=== PATIENT | female | born 2000 | race Hispanic/Latino ===

== ENCOUNTER 2023-04-22 20:39 | Emergency (ER) | payer OTHER ==
[~2023-04-22] VITALS: Ht 160 cm; Wt 99.8 kg
[2023-04-22] MEDS ORDERED: CEFTRIAXONE 1 GM VIAL IV STA (21:10)
[2023-04-22] MEDS ORDERED: SODIUM CHLORIDE 0.9% 1000ML 1,000 ML IV ONE (21:15)
[2023-04-22 21:24] LABS: BASOPHILS # (AUTO) 0.1 (0.0-0.1); BASOPHILS % 0.6 % (0.0-1.0); EOSINOPHILS # (AUTO) 0.1 (0.0-0.4); EOSINOPHILS % 0.9 % (0.0-6.0); HEMATOCRIT 40.6 % (34.2-44.1); HEMOGLOBIN 13.7 g/dL (12.0-16.0); LYMPHOCYTES # (AUTO) 1.9 (1.0-3.2); LYMPHOCYTES % 12.1 % (18.0-39.1); MEAN CORPUSCULAR HEMOGLOBIN 29.7 pg (28-32); MEAN CORPUSCULAR HGB CONC 33.7 g/dL (31-35); MEAN CORPUSCULAR VOLUME 87.9 fL (81-99); MONOCYTES # (AUTO) 1.3 (0.2-0.8); NEUTROPHILS # (AUTO) 12.4 (2.1-6.9); NEUTROPHILS % 78.1 % (38.7-80.0); PLATELET COUNT 398 x10e3/uL (140-360); RED BLOOD COUNT 4.62 x10e6/uL (3.6-5.1); RED CELL DISTRIBUTION WIDTH 13.3 % (11.7-14.4)
[2023-04-22] MEDS ORDERED: SODIUM CHLORIDE 0.9% 100 ML IV ONE (21:30)
[2023-04-22 21:32] LABS: COLOR,URINE YELLOW (YELLOW); KETONES,URINE NEGATIVE (NEGATIVE); LEUKOCYTE ESTERASE ,URINE TRACE (NEGATIVE); NITRITE,URINE NEGATIVE (NEGATIVE); PROTEIN,URINE DIPSTICK NEGATIVE (NEGATIVE); URINE UROBILINOGEN 0.2 mg/dL (0.2 - 1)
[2023-04-22 21:33] LABS: CLARITY,URINE CLEAR (CLEAR)
[2023-04-22 21:34] LABS: INR 0.92; PROTHROMBIN TIME 12.9 seconds (11.9-14.5)
[2023-04-22 21:35] LABS: PARTIAL THROMBOPLASTIN TIME 29.2 seconds (23.8-35.5)
[2023-04-22 21:42] LABS: ALBUMIN 4.2 g/dL (3.5-5.0); ANION GAP 15.6 mmol/L (8-16); CREATININE, SERUM 0.87 mg/dL (0.57-1.11); POTASSIUM 3.6 mmol/L (3.5-5.1)
[2023-04-22 21:44] LABS: BACTERIA,URINE RARE /HPF; EPITHELIAL CELLS,URINE FEW /LPF; WBC,URINE (MAN) 0-5 /HPF (0-5)
[2023-04-22 21:53] LABS: CALCIUM 9.6 mg/dL (8.4-10.2)
[2023-04-22] MEDS ORDERED: ACETAMINOPHEN 325 MG TAB PO ONE (22:00)
[2023-04-22] MEDS ORDERED: IBUPROFEN 600 MG TAB PO STA (23:42)
[2023-04-23 01:55] VITALS: BP 130/78; PULSE 78; RESP 16; TEMP 98.9; O2SAT 100
== END 2023-04-23 01:57 | disposition home or self-care (01) ==
LOC: ER 20:49
DX: R10.32 Left lower quadrant pain (principal); R50.9 Fever, unspecified; D72.829 Elevated white blood cell count, unspecified
CPT/HCPCS: 36415; 71045; 74176; 80053; 81001; 83605; 84702; 85025; 85610; 85730; 87040; 87086; 99284; J0696; J7030; J7050